=== PATIENT | female | born 1965 | race Caucasian/White ===

== ENCOUNTER 2023-05-25 14:24 | Outpatient (CLI) | payer OTHER, SELFPAY ==
--- NOTE | 2023-05-25 14:00 | DI.RAD_ITS ---
Exam(s) XR HIP RT COMPLETE AP PELVIS EXAM: XR HIP RT COMPLETE AP PELVIS CLINICAL HISTORY: eval R hip pain, AVN. TECHNIQUE: 2D digital imaging was performed. Two views COMPARISON: MR MR THIGH W WO CONTRAST RIGHT from 03/12/2023 FINDINGS: BONES: Large subchondral cyst of the femoral head. Slight flattening of the femoral head visible on the lateral view. No bony destructive lesion is seen. JOINTS: No dislocation present. Severe degenerative changes of the right hip joint space. Prominen t periarticular spurring. Large subchondral cysts in the femoral head and small subchondral cysts in the acetabulum. Left hip joint space is maintained. Acetabular spurring present. Mild degenerativ e changes of the SI joints and pubic symphysis. SOFT TISSUE: Normal. IMPRESSION: Severe degenerative changes of the right hip with large subchondral cyst in the head. DATA REPOSITORY: RADIATION DOSE DELIVERED:
== END 2023-05-25 14:25 | disposition home or self-care (01) ==
LOC: DIORS 14:25
PROVIDERS: PCP Family Medicine; Visit Provider Student in an Organized Health Care Education/Training Program
DX: M87.051 Idiopathic aseptic necrosis of right femur
CPT/HCPCS: 73502

== ENCOUNTER 2023-06-19 02:52 | Outpatient (CLI) | payer OTHER, SELFPAY ==
[2023-06-19 09:12] LABS: HCT 45.7 % (36.0-46.0); HGB 15.5 g/dL (11.2-15.7); MCH 30.3 pg (27.0-33.0); MCHC 33.9 % (32.0-36.0); MCV 89 fL (80-95); MPV 9.6 fL (8.0-11.0); Platelet Count 394 10^3/uL (130-400); RBC 5.11 10^6/uL (3.93-5.22); RDW 12.4 % (11.7-14.6); RDW-SD 41.1 fL; WBC 6.92 10^3/uL (4.4-10.8)
[2023-06-19 09:31] LABS: BUN 18 mg/dL (7-18); CREATININE 0.9 mg/dL (0.55-1.02); Calcium 9.6 mg/dL (8.5-10.1); Chloride 102 mmol/L (98-107); Estimated GFR 73.19 (mL/min/1.73m2); Glucose 130 mg/dL (74-106); Potassium 4.1 mmol/L (3.5-5.1); Sodium 140 mmol/L (136-145)
== END 2023-06-19 02:53 | disposition home or self-care (01) ==
LOC: LBO 02:53
PROVIDERS: PCP Family Medicine; Visit Provider Student in an Organized Health Care Education/Training Program
DX: M16.11 Unilateral primary osteoarthritis, right hip (principal); M87.051 Idiopathic aseptic necrosis of right femur; Z01.818 Encounter for other preprocedural examination
CPT/HCPCS: 36415; 80048; 85027

== ENCOUNTER 2023-07-01 05:59 | Day surgery (SDC) | payer OTHER, SELFPAY ==
[2023-07-01] VITALS (13 sets, daily range): BP systolic 114–183; BP diastolic 52–90; PULSE 63–83; RESP 14–20; TEMP 36.2–36.4; O2SAT 97–100; BMI 31.7
[2023-07-01] MEDS: Celecoxib 200 MG CAP 400 MG PO (06:38)
[2023-07-01] MEDS: Acetaminophen 500 MG TAB 1000 MG PO (06:38)
[2023-07-01] MEDS: Lactated Ringers 1,000 ML 80 ML IV (06:50)
--- NOTE | 2023-07-01 07:16 | W.ANESPRE ---
General Info Date of Service Date Performed: 07/01/23 Height: 5 ft 3 in Weight: 81.2 kg Body Mass Index (BMI): 31.7 Surgical Procedure: Operation Date: 07/01/23 07:50 Proposed Procedure Side Surgeon p Hip Total Hip Anterior, ACTIS 12/10 High Right Petey Suarez MD Meds Allergies and Home Medications Allergies Allergy/AdvReac Type Severity Reaction Status Date / Time No Known Allergies Allergy Verified 07/01/23 06:17 Home Medication Medication Instructions Recorded benazepril 20 mg tablet 20 mg PO DAILY 05/25/23 biotin 1,250 mcg-collagen 50 1 tab PO DAILY 06/19/23 mg-vit C 67.5 mg-vit E-herbal chew tablet cholecalciferol (vitamin D3) 50 50 mcg PO DAILY 06/19/23 mcg (2,000 unit) capsule multivitamin 1 tab PO DAILY 06/19/23 omega-3 fatty acids-fish oil 360 1 cap PO DAILY 06/19/23 mg-1,200 mg capsule (Fish Oil) ibuprofen 200 mg tablet (Advil) 200 mg PO ONCE 07/01/23 magnesium 250 mg tablet 250 mg PO DAILY 07/01/23 Current Visit Medications: Current Medications Generic Name Dose Route Start Last Admin Trade Name Rubenq PRN Reason Stop Dose Admin Acetaminophen 1,000 mg 07/01/23 06:00 07/01/23 06:38 Acetaminophen 500 Mg Tab PO 07/01/23 16:00 1,000 mg PREOP RAMÓN Administration Celecoxib 400 mg 07/01/23 06:00 07/01/23 06:38 Celecoxib 200 Mg Cap PO 07/01/23 16:00 400 mg PREOP RAMÓN Administration Tranexamic Acid 1,000 mg/ 60 mls @ 360 mls/hr 07/01/23 06:00 Sodium Chloride IV 07/01/23 16:00 PREOP RAMÓN Ringer's Solution 1,000 mls @ 80 mls/hr 07/01/23 06:00 07/01/23 06:50 IV 07/30/23 23:59 80 mls/hr INFUSION RAMÓN Administration Cefazolin Sodium/Dextrose 2 gm in 50 mls @ 100 mls/hr 07/01/23 06:00 Ancef Duplex IVPB 07/01/23 16:00 PREOP RAMÓN IV Miscellaneous Supplies 1 each 07/01/23 06:00 Iv Access IV 07/30/23 23:59 DIRECTED RAMÓN Sodium Chloride 0 ml 07/01/23 06:00 Normal Saline Flush 10 Ml Syr IV 07/30/23 23:59 PRN PRN Sodium Chloride 0 ml 07/01/23 06:00 Normal Saline 10 Ml Vial IJ 07/30/23 23:59 DIRECTED PRN Sterile Water 0 ml 07/01/23 06:00 Water,Injection,Sterile 10 Ml Vial IJ 07/30/23 23:59 DIRECTED PRN PFSH Active Problems Active Problems: Problem Status Onset Code Hypertension I10 Arthritis of right hip M16.11 Avascular necrosis of bone of right hip M87.051 Medical History Medical History Uterine cancer stage 1 Medical History Comments:: pt. had hard time waking up after tubal Surgical History Surgical History S/P breast biopsy right H/O wisdom tooth extraction H/O colonoscopy History of tubal ligation H/O total hysterectomy with bilateral salpingo-oophorectomy (BSO) Reports was for concern of cancer but ended up being precancerous Tobacco Smoking/Tobacco Use Status: Never Alcohol Alcohol Intake: current Alcohol intake frequency: a few times a month Alcohol type: beer, wine and hard liquor Substance Use Substance use: Never Substance use type: does not use Details: CBD oil topically. Alcohol: t-2, one drink Vital Signs and Lab Results Vital Signs Most Recent Vital Signs in EMR: Most Recent Vital Signs Temp Pulse Resp BP Pulse Ox 36.4 C L 70 14 156/65 H 97 07/01/23 06:27 07/01/23 06:27 07/01/23 06:27 07/01/23 06:27 07/01/23 06:27 Lab Results Blood Type / Crossmatch: No Data to Display Complete Blood Count: White Blood Count 6.92 10^3/uL (4.4-10.8) 06/19/23 09:03 Red Blood Count 5.11 10^6/uL (3.93-5.22) 06/19/23 09:03 Hemoglobin 15.5 g/dL (11.2-15.7) 06/19/23 09:03 Hematocrit 45.7 % (36.0-46.0) 06/19/23 09:03 Platelet Count 394 10^3/uL (130-400) 06/19/23 09:03 Complete Metabolic Panel: Sodium 140 mmol/L (136-145) 06/19/23 09:03 Potassium 4.1 mmol/L (3.5-5.1) 06/19/23 09:03 Chloride 102 mmol/L (98-107) 06/19/23 09:03 Carbon Dioxide 30.0 mmol/L (21.0-32.0) 06/19/23 09:03 BUN 18 mg/dL (7-18) 06/19/23 09:03 Creatinine 0.9 mg/dL (0.55-1.02) 06/19/23 09:03 Est GFR (CKD-EPI 2020) 73.19 (mL/min/1.73m2) 06/19/23 09:03 Calcium 9.6 mg/dL (8.5-10.1) 06/19/23 09:03 Glucose 130 mg/dL (74-106) H 06/19/23 09:03 Liver Function Panel: No Data to Display Coagulation Panel: No Data to Display Cardiac Panel: No Data to Display Arterial Blood Gas: No Data to Display Venous Blood Gas: No Data to Display Pancreas Panel: No Data to Display Thyroid Panel: No Data to Display Infectious Disease: No Data to Display Blood Cultures: No Data to Display Toxicology Panel: No Data to Display Anesthesia Assessment and Plan Anesthesia History Personal History: No History of Anesthesia Complications Family History: No Family History of Anesthesia Complications Exercise Tolerance Exercise Tolerance: Metabolic Equivalents>4 Pertinent Negatives Pertinent Negatives: No Symptoms of GERD, No Major Cardiovascular Symptoms or Complaints and No Major Pulmonary Symptoms or Complaints Cardiac & Pulmonary Exam Cardiac Exam: Normal S1/S2 Heart Sounds Pulmonary Exam: Clear Bilateral Breath Sounds Implantable Cardiac Device Does patient have a Pacemaker or an ICD?: No Airway Exam Known Difficult Airway: No Mallampati Class: 1 Mouth Opening: Normal (> 3cm) Thyromental Distance: Greater than 3 cm Neck Range of Motion: Full ROM Neck Circumference: Normal Teeth Condition: Normal Dentition ASA Classification ASA Score: ASA 2 Emergency Case?: No NPO Status NPO Status: NPO Clears >2 hours, Solids >8 hours Anesthesia Plan Resuscitation Status: Full Code Anesthesia Technique: Spinal Anesthesia Airway Planned: Natural Airway Monitors Used: Standard Monitors
[2023-07-01] MEDS: ceFAZolin 2 GM/50 ML BAG IVPB (07:37)
--- NOTE | 2023-07-01 08:55 | DI.RAD_ITS ---
Exam(s) XR HIP RT IN OR EXAM: XR HIP RT IN OR CLINICAL HISTORY: RT HIP DJD. TECHNIQUE: 2D digital imaging was performed. COMPARISON: No exams were available for comparison FINDINGS: Fluoroscopy provided during hip arthroplasty. See procedure report for details. Total fluoroscopy time 32 seconds IMPRESSION: Radiation exposure index/cumulative dose: akua [place]= 3.5892 mGy DATA REPOSITORY: RADIATION DOSE DELIVERED:
--- NOTE | 2023-07-01 10:12 | W.PM.OP ---
Date of service: 07/01/23 Time of Service: 08:00 Operative Note Operative Note DATE OF PROCEDURE: 07/01/23 PRE-OP DIAGNOSIS: Right Hip Osteoarthritis POST-OP DIAGNOSIS: same PROCEDURE: Right Anterior Total Hip Arthroplasty with Intraoperative Navigation SURGEON: Petey Suarez RE DYE HAND: Roselyn Meeks ANESTHESIA TYPE: Spinal Refer to Anesthesia Record ESTIMATED BLOOD LOSS: 200 PATHOLOGY: none sent TOURNIQUET TIME: 0 COMPLICATIONS: None Patient was transported to: PACU Patient's condition: stable Implants: 1. Depuy [place] Acetabular Component, 52mm 2. Depuy Acetabular Liner, [id number] 3. Depuy Actis Standard Collared Femoral Stem, Size 5 4. Depuy Altrx Ceramic Femoral Head, Size 36+5mm Indications: I have seen Tiffani in clinic for symptoms of hip arthritis, confirmed with radiographic findings. She has exhausted nonoperative methods and was having significant limitations in daily function and desired better function and less pain. I discussed the technical details of a hip replacement. I explained the risks of the procedure to include, but not limited to, bleeding, infection, pain, stiffness, fracture, damage to nerves and vessels, damage to muscles and tendons, loosening, instability, leg length inequality, need for repeat procedure, blood clot and cardiopulmonary demise. Despite these risks, Tiffani elected to proceed. Findings: There was significant signs of arthritis throughout the hip. Procedure Description: Tiffani was greeted in the preoperative holding area where the correct side was identified and marked. The consent was reviewed with the patient and signed. The history and physical was updated. All questions were answered. She was taken back to the operating room. A spinal anesthestic was then administered. The feet were wrapped with cast padding and Coban and then placed into the boot liners and then into the boots. Care was taken to protect the skin and make sure the heels were fully down and the boots were stable. The patient was then positioned onto the HANA table. Both legs were held in a neutral position. SCDs were applied. The patient was then slid down onto a peroneal post. Prophylactic antibiotics in the form of Cefazolin were administered. 1g of Tranxemic Acid was given intravenously within 30 minutes of incision. The right leg was then prepped with Chloraprep and draped in a standard fashion. A second prep with Chloraprep was performed prior to placement of a shower-curtain type drape with Iodine impregnated skin protection. A timeout to confirm correct identity, side and site, procedure, allergies, anesthesia, and medical concerns was performed. An obliquely oriented incision was made starting lateral to the ASIS and running distal over the Tensor Fascia Karolina (TFL) muscle belly toward the fibular head, approximately 10cm. The skin and soft tissue was dissected sharply, through Denis?s fascia, and to the fascia of the TFL. With the fascia and superior border of the IT band identified, the fascia was incised with a new knife just above any perforators from the IT band. The TFL muscle belly was bluntly dissected away from the fascia and moved laterally. The fat between TFL and rectus was identified to ensure the dissection was not within the TFL. Blunt dissection created space between abductors and the capsule and retractor was placed over the lateral femoral neck. The fibers of the rectus femoris tendon were identified and these were freed from the anterior capsule. A second cobra retractor was placed around the medial femoral neck. The TFL was further retracted laterally to show the deep fascia. Careful dissection through this layer identified three main crossing vessels of the lateral femoral circumflex. These were cauterized in multiple locations and then cut without any noticeable bleeding. The TFL was further released bluntly from the deep fascia to expose anterior hip capsule and fat The Lefty orthopaedic retractor was then placed beneath the TFL and against sartorius and medial soft tissues to protect and retract the soft tissues. A T-capsulotomy was then performed starting at the superior lateral acetabulum and moving distally to the intertrochanteric ridge. These capsular flaps were tagged with a No. 1 Ethibond and elevated from within. The capsular flaps were released to the shoulder of the lateral neck and to the lesser trochanter to give excellent visualization of the proximal femur. A neck osteotomy was performed using an oscillating saw based on preoperative templates. This cut started in the shoulder and of the lateral neck and exited medially. The saw was at all times directed medially to avoid injury to the greater trochanter. Gross traction was applied to the leg and the osteotomy opened. The femoral head was removed with a corkscrew, making sure to protect the TFL on its exit. Traction was released after head removal. This was measured on the back table to determine the starting reamer size. Portions of the rectus obscuring visualization were minimally elevated off the superior acetabulum. An anterior retractor was placed over the anterior wall between capsule and labrum and attached to the Gripper retraction system. The femur was rotated to 90 degrees and medial capsule was fully released until the lesser trochanter was palpable and visible; the femur was returned to 30 degrees. A posterior retractor was placed similarly between capsule and labrum. This provided excellent visualization. The contents of the cotyloid fossa were removed with electrocautery and the labrum was removed with a knife. There was a notable floor osteophyte. There was significant chondromalacia of the superior acetabulum. Acetabular reaming began with a 46mm reamer. This first reaming was directed anterior to posterior and medial to get down to the true floor. This was inspected and reamed until the true floor was reached. The anterior retractor was then released and entry and exit was provided by traction on the capsular flaps. I then reamed sequentially up to a 52mm reamer where good fit was obtained. The larger reamers were oriented based on anatomical reference of the anterior and lateral butt to ensure proper abduction and anteversion. Positioning and size was confirmed with the fluoroscopy. A 52mm Depuy [place] acetabular component was selected. The acetabulum was reamed around the periphery with the selected acetabular size to prevent a rim fit. The deep tissues were irrigated. The acetabular component was then impacted in a position of about 40-45 degrees of abduction and 15-20 degrees of anteversion, using the patient?s anatomy as the ultimate landmark. Fluoroscopy was used to confirm this. There was excellent blade aligner of the acetabular component and the inserting handle was removed. The acetabular liner, Depuy [id number] polyethylene liner, was inserted and lined up with the tines of the acetabular component. There was no soft tissue interposition. The liner was then impacted into position and confirmed to be well-seated. A portion of the kim-articular cocktail was then injected around the acetabulum into the capsule and periosteum. This cocktail consisted of 123mg of Ropivacaine, 0.25mg of Epinephrine, 0.04mg of Clonidine, and 15mg of Ketorolac, diluted to 50cc. The leg was rotated to 120 degrees. Any remaining medial capsule was released until the lesser trochanter was easily palpable. A retractor was placed medially. The lateral capsule was further released into the shoulder to allow access to the greater trochanter. A Posadas retractor was placed over the greater trochanter which allowed the trochanter to flip in front of the capsule for excellent exposure. The leg was brought down into maximal extension and 20 degrees of adduction while ensuring there was no impingement on the acetabulum. Any remnant capsule within the trochanter was released. Piriformis and obturator externis were identified and protected. There was excellent access to the proximal femur. The lateral neck remnant was removed with a rongeur. A blunt canal probe was used to identify the canal and trajectory for later broaching. A box osteotome initiated the broach course. A small curved rasp and a curved curette were used to work laterally. Broaching then began with a starter Actis broach. This was inserted manually around the trochanter and into the canal before mallet blows. The broach was seated to a few millimeters below the cut level based on the neck cut and the preoperative template. Sequential broaching was continued with the SpineFrontier pneumatic broaching device until a tight fit was obtained with good rotational control of the femur. A trial high offset neck was inserted along with a +5 trial head. The leg was brought out of extension and adduction and then reduced with traction and internal rotation. The leg was stable anteriorly in a position of 30 degrees of extension and 90 degrees of external rotation. Fluoroscopy was used to ensure there was no fracture and the stem was seated well. Leg lengths were checked with an AP pelvis and pelvic reference points. Scheduling [employer] Scheduling Software navigation system was used to confirm appropriate positioning and leg length and offset. This high offset was too much but was better recreated with standard stem neck. Once content with the desired offset and leg lengths, the leg was brought back into extension, external rotation and adduction. The periosteum and surrounding tissue was injected with remaining portion of the kim-articular cocktail. The proximal femur was irrigated as well as the deep tissues. The [employer] Actis standard collared stem, size 5, was then manually inserted into the proximal femur making sure to control rotation. It was then malleted into position with light blows, giving breaks to allow bone expansion and decrease risk of fracture. The selected Depuy Altrx Ceramic Head, size 36+5mm, was then placed onto the clean and dry trunnion and secured with impaction onto the tapered fit. The leg was brought back out of extension and adduction and reduced with traction and internal rotation. Stability was confirmed with no shuck at 90 degrees of external rotation and 30 degrees of extension. No impingement through range of motion arc. Final x-ray images were obtained with fluoroscopy to confirm adequate positioning and no intraoperative fracture. The deep tissues were thoroughly irrigated with Surgiphor, betadine solution. This was allowed to sit in the wound for 3 minutes before being thoroughly irrigated out with normal saline. The capsule was then reapproximated with the previously placed Ethibond sutures. The TFL fascia was finally closed with a No. 2 Stratafix, barbed suture. Deep tissues were then reapproximated with 0 Vicryl and a running 2-0 Vicryl. The skin was closed with a running 4-0 Monocryl in a subcuticular fashion. This was reinforced with skin glue. A Mepilex silver dressing was applied. At the end of the case, all counts were correct. Tiffani was transferred to the hospital bed without difficulty and suffering no apparent complication. Tiffani has a good prognosis. Physical therapy will start today and without restrictions, weight-bearing as tolerated. Aspirin 81mg BID will be used for DVT prophylaxis.
[2023-07-01] MEDS: oxyCODONE 5 MG TAB PO (10:23)
--- NOTE | 2023-07-01 10:56 | PT.INIE ---
PT Notes Visit Reasons: Right hip DJD Physical Therapy Day Surgery Initial Evaluation Date: Referring Doctor: RACHEL Warner PT Orders: PT CONSULT: S/P ortho surgery Precautions: WBAT on the R LE with AD. Patient Profile/Admitting Diagnosis: Ravi is a 58-year-old female with degenerative joint disease of the right hip and avascular necrosis of the right femur. She is status post right total hip arthroplasty on postoperative day 1 PMHX: All Active Problems (Updated 05/26/23 @ 06:14 by Petey Suarez MD) Arthritis of right hip (Acute) Avascular necrosis of bone of right hip (Acute) Social History/Home Situation: Lives with in a praivate home with a total of 12 steps to enter and a rail on one side. Independent with all aspects of ADLs prior to surgery. Equipment Owned/DME: None Subjective: reports achiness in the R hip and wanted to see how movement will help with her discomfort. Reported feeling groggy but willing to try out getting out of bed and walking. Denied lightheadedness, nausea, and chest pain. Per Nurse Sharda, patient was given Oxycodone about half an hour ago. Objective: General Observation: Mepilex Ag over surgical incision. TEDS to be legs. Mental Status: A&O x 4 Pain: As above ROM: Right Lower Extremity: Hip flexion WFL. Hip abduction WFL. Knee flexion WFL. Ankle dorsiflexion WFL. Ankle plantarflexion WFL. Left Lower Extremity: Hip flexion WFL. Hip abduction WFL. Knee flexion WFL. Ankle dorsiflexion WFL. Ankle plantarflexion WFL. Strength: Right Lower Extremity: Hip flexors 4-/5. Hip abductors 4-/5. Knee flexors 4/5. Knee extensors 4-/5. Ankle dorsiflexors 5/5. Ankle plantarflexors 5/5. Left Lower Extremity:Hip flexors 5/5. Hip abductors 5/5. Knee flexors 5/5. Knee extensors 5/5. Ankle dorsiflexors 5/5. Ankle plantarflexors 5/5. Sensation: Intact as to pain and light pressure in bilateral lower extremities Bed Mobility/Transfers: Minimal cueing provided for use of B hands as needed for support, movement sequence, Ad management, and and posture to reduce fall risk and minimize pain report Supine to sit stand bby assist Sit to stand contact guard assist with FWW Stand to sit contact guard assist with FWW Bed to chair contact guard assist with FWW Gait: Facilitated safe and correct performance of level surface ambulation covering a distance of 100 feet using front wheeled walker with contact-guard assist with report of decreased achiness on the right hip and thigh. Minimal verbal cueing provided for AD management, limb advancement, and posture. Reported increased grogginess at end of walk with increase pallor in lips. Nurse Sharda measured 117/57 mmHg which is a significant decrease from earlier BP reading. Patient agreed to resting for a little bit on advice of PT and Nurse Robin before trying out stairs. Wheelchair follow provided by nurse Robin for safety. Stairs: Deferred until later. Will check in on patient in half an hour. During the follow up visit about half an hour later, the patient was able to tolerate 3 x 4 inch steps and 2 x 6-inch steps while holding onto B rails with step-to gait pattern requiring minimal verbal cueing for safe gait pattern and hand placement. Stand by assist provided by Nurse Robin for safety. Balance: Static Sitting: Normal Dynamic Sitting: Normal Static Standing: Fair Dynamic Standing: Fair Special Tests: Mobility Limitations Standardized Measure [facility]-PAC 6 clicks Basic Mobility Inpatient Short Form: Raw Score: 18 CMS Score: 47% deficit Informed Consent/Education: Patient instructed in purpose of PT consult. Packet containing CARMEN exercise protocol has been given to patient. Education and training on initial set of exercises that can be done at home have been completed with patient. Trained patient with correct performance of exercises below to maximize motor control, joint flexibility, soft tissue extensibility of the R hip musculature to facilitate return to independent functional mobility performance. Access Code: [email or web address] URL: [email or web address] Date: 07/01/2023 Prepared by: Michaela Beach Exercises - Gluteal Sets - 1 x daily - 7 x weekly - 1 sets - 10 reps - 5 hold - Supine Heel Slide - 1 x daily - 7 x weekly - 1 sets - 10 reps - 5 hold - Supine Ankle Pumps - 1 x daily - 7 x weekly - 1 sets - 10 reps - 5 hold - Seated March - 1 x daily - 7 x weekly - 1 sets - 10 reps - 5 hold - Seated Long Arc Quad - 1 x daily - 7 x weekly - 1 sets - 10 reps - 5 hold Assessment: Patient requires the use of a front wheeled walker for all mobility ADL performance to reduce fall risk and maximize independence. Deferred stair negotiation training due to drop of and increased pallor in lips along with increased grogginess. Patient presents with clinical signs and symptoms consistent with current/admitting diagnoses that have resulted to mobility limitations, gait instability, generalized weakness, and impairment of motor control as demonstrated by the following impairment level findings: 1. Decreased strength to R hip major muscle groups 2. Impaired standing balance Impairments are contributing to the following functional limitations: 1. Inability to safely ambulate without assistive device 2. Increase completion time for mobility ADL performance 3. Increased fall risk Patient is assessed as a 25816 moderate complexity based on the following: History: 58-year-old female with impairment level findings, functional limitations, and past medical history as indicated above Examination: Demonstrable impairment in strength, balance, and mobility level with underlying impairments and functional limitations as documented above Presentation: Evolving Decision Makin moderate complexity Goals: N/A. PT evaluation and 1-2 treatment sessions only for functional mobility training using recommended AD and for HEP instruction. Plan of Care/Treatment Plan: N/A. PT evaluation and 1-2 treatment session only for functional mobility training using recommended AD and for HEP instruction. DISCHARGE RECOMMENDATIONS: Home when medically cleared by orthopedic surgeon. Recommend outpatient PT services in order to optimize functional mobility outcomes and facilitate return to independent community ambulation without an assistive device. TREATMENT CODE/TIME: 92360 x 27 minutes from 1 unit, 60251 x 17 minutes for 1 unit beginning at 10:56 AM and 11:56 AM. Thank you for the opportunity to participate in the care of this patient. Please sign an return this page within 30 days if you agree with the above POC. Thank you! Michaela Beach PT, DPT, CLT [facility], [place] Physician Signature Date
--- NOTE | 2023-07-01 11:20 | W.ANESPOSTOP ---
Postoperative Evaluation Date, Time and Location Date Performed: 07/01/23 Time Performed: 11:20 Patient Location: Day Surgery Unit Vital Signs Most Recent Imported Vital Signs: Most Recent Vital Signs Temp Pulse Resp BP Pulse Ox 36.3 C L 69 20 183/85 H 100 07/01/23 10:35 07/01/23 10:35 07/01/23 10:35 07/01/23 10:35 07/01/23 10:35 Pain Score Most Recent Pain Score: Most Recent Pain Score Pain Level 3 07/01/23 10:35 Assessment Mental Status: Awake (Alert & Oriented to Patient Baseline) Airway and Respiratory Function: Patent airway with normal (patient baseline) respiratory exam Cardiovascular Function: Hemodynamically Stable Hydration Status: Adequately Hydrated Nausea & Vomiting: No Nausea or Vomiting Pain: Pain is tolerable per patient Peripheral Nerve Block: Patient did not receive a nerve block
--- NOTE | 2023-07-01 12:28 | W.PM.DS.N ---
Date of service: 07/01/23 Time of Service: 11:48 DS: Diagnosis Discharge Diagnosis (1) Avascular necrosis of bone of right hip: Status: Acute Discharge Plan Disposition Patient Disposition: Home Condition: Good Discharge Details Reason For Visit: Right hip DJD Attending Provider: Petey Suarez Primary Care Provider: Federico So Home Meds and New Rx's Prescriptions: New acetaminophen 500 mg tablet 1,000 mg PO Q8H PRN Qty: 90 0RF Rx Instructions: Take two tablets up to every 8 hours as needed for pain aspirin 81 mg tablet,delayed release (DR/EC) 81 mg PO BID 30 Days Qty: 60 0RF celecoxib [Celebrex] 200 mg capsule 200 mg PO BID PRNQty: 60 0RF Rx Instructions: Take one tablet twice daily for pain and inflammation docusate sodium [Colace] 100 mg capsule 100 mg PO BID Qty: 30 0RF pantoprazole 40 mg tablet,delayed release (DR/EC) 40 mg PO DAILY 14 Days Qty: 14 0RF dexamethasone 4 mg tablet 4 mg PO DAILY Qty: 2 0RF Rx Instructions: Take one tablet once daily for two days oxycodone 5 mg tablet 5 mg PO Q6H PRNQty: 12 0RF Rx Instructions: Take one tablet up to every 6 hours as needed for severe postoperative pain Continued benazepril 20 mg tablet 20 mg PO DAILY multivitamin Tablet 1 tab PO DAILY cholecalciferol (vitamin D3) 50 mcg (2,000 unit) capsule 50 mcg PO DAILY omega-3 fatty acids-fish oil [Fish Oil] 360-1,200 mg capsule 1 cap PO DAILY cciwoi-mxbbxedk-mdd C-E-herbal 1,250 mcg-50 mg -67.5 mg-15 mg tablet,chewable 1 tab PO DAILY magnesium 250 mg tablet 250 mg PO DAILY Patient Comments: pt. states dose is around 300 mg Discontinued ibuprofen [Advil] 200 mg tablet 200 mg PO ONCE Patient Comments: 400 mg dose Discharge Instructions Additional Instructions: Total Hip Discharge Instructions Activity: The most important activity is to walk. You should try to take short walks a few times a day. You have no restrictions on movement or positioning, but do not try to force what you do. You will find some stiffness and weakness with hip flexion (lifting your knee). Do not try to strengthen this too early, continue to practice walking and stairs and this will come. - Outpatient physical therapy can be helpful to help return you to a normal gait and improve your flexibility and strength. This can start around 2 weeks. For some patients, it?s not necessary. Usually this is determined at the time of discharge or at the first post-operative visit. - You should wear the MONICA hose on both legs for 2 weeks. Dressing: Keep the surgical dressing in place for at least one week. After the first week it may be removed and replace with light gauze and tape or nothing. It may get wet after 3 days but avoid soaking the dressing. If it gets wet, just lightly pat dry. It is important to always keep some gauze between skin folds, especially when you are sitting. Spend some time with the wound exposed when you are lying flat as the incision does wrinkle onto itself. Medications: - You should take Tylenol and an anti-inflammatory Celebrex as your primary pain control medications. If the Celebrex is too expensive or not covered, please call the office for another alternative (Advil/Ibuprofen or Naproxen/Aleve). - You have been prescribed a stronger pain medication Oxycodone for breakthrough pain, take as needed as prescribed. - You have also been prescribed a stomach acid reduction agent Pantoprozole to help reduce stomach acid and reflux. - You have also been prescribed Decadron to help with post-operative nausea and pain. You will take this for two days starting tomorrow. - You will be taking Aspirin 81mg twice a day for DVT prevention unless instructed otherwise. - If you have constipation you should take Colace (which has been prescribed) or Miralax (which is available [id number]). It takes most people 3-4 days to have a bowel movement. Follow-up: 2 weeks If you have any acute concerns or questions, please do not hesitate to contact the office at [phone]. You may contact Dr. Suarez with any questions after hours through the hospital at [phone] or on his cell phone at [phone]. Stand Alone Forms: Anesthesia Discharge InstClif, Tj Abad (U) Referrals: Petey Suarez MD [ [facility] STAFF PHYSICIAN] - 07/16/23 11:00 am Equipment/Supplies: Walker Activity:: Elevate Remove Dressings/Wound Care:: Do Not Remove Shower/Bathe:: 72 hours and Cover Diet:: As Tolerated Discharge Orders Discharge Orders: Discharge Order (Routine); Ordered 07/01/23 Ordered By: Roselyn Meeks DS: Summary Time Spent with Patient providing and/or coordinating discharge services: Less than 30 minutes Status at Discharge Functional status at discharge: uses cane/walker Overall status at discharge: patient is progressing back to baseline Mental Status: mental status grossly normal Speech and Movement: speech and movement normal Mood: congruent mood Affect: normal affect Exam Psych Mental Status: mental status grossly normal Speech and Movement: speech and movement normal Mood: congruent mood Affect: normal affect DS: Data Vitals/I&O Vitals and I&O: Vital Signs Temperature 97.5 F L 07/01/23 06:27 Pulse 70 07/01/23 06:27 Pulse Rhythm Regular 07/01/23 06:27 Respiratory Rate 14 07/01/23 06:27 Respiratory Depth Normal 07/01/23 06:27 Blood Pressure 156/65 H 07/01/23 06:27 Pulse Oximetry 97 07/01/23 06:27 Oxygen Delivery Method Room Air 07/01/23 06:27 Oxygen Flow Rate 0 07/01/23 06:27 Pain Level 0 07/01/23 06:27 Intake & Output 06/30/23 06/30/23 07/01/23 11:59 23:59 11:59 Weight 179 lb 0.246 oz PFSH All Active Problems (Updated 07/01/23 @ 12:28 by Petey Suarez MD) Hypertension (Chronic) Arthritis of right hip (Acute) Avascular necrosis of bone of right hip (Acute) s/p R CARMEN (07/01/23) Medical History (Updated 07/01/23 @ 12:28 by Petey Suarez MD) Uterine cancer stage 1 Surgical History S/P breast biopsy right H/O wisdom tooth extraction H/O colonoscopy History of tubal ligation H/O total hysterectomy with bilateral salpingo-oophorectomy (BSO) Reports was for concern of cancer but ended up being precancerous Social History Smoking/Tobacco Use Status: Never Smoking risk assessment performed?: Yes Alcohol Intake: current Alcohol Intake frequency: a few times a month Alcohol type: beer, wine and hard liquor Drug use: Never Substance use type: does not use Details: CBD oil topically. Alcohol: t-2, one drink Housing: house Do you feel safe at home: Yes Do you feel safe in your relationship?: Yes Additional Social history: unable to assess privately Time Spent with Patient Time Spent with Patient: 45-69 minutes Time was spent: obtaining and/or reviewing separately otained hiistory, indepentently interpreting results and counseling the patient
== END 2023-07-01 13:07 | disposition home or self-care (01) ==
PROVIDERS: PCP Family Medicine; Visit Provider Student in an Organized Health Care Education/Training Program
PROC: (CPT 27130; principal; 2023-07-01 07:30)
DX: M87.051 Idiopathic aseptic necrosis of right femur (principal); M16.11 Unilateral primary osteoarthritis, right hip; I10 Essential (primary) hypertension
CPT/HCPCS: 27130; 20985; 97162; 97530; 73501; J0690; J1100; J2001; J2250; J2405

== ENCOUNTER 2023-07-16 15:10 | Outpatient (CLI) | payer OTHER, SELFPAY ==
--- NOTE | 2023-07-16 10:45 | DI.RAD_ITS ---
Exam(s) XR HIP RT COMPLETE AP PELVIS EXAM: XR HIP RT COMPLETE AP PELVIS CLINICAL HISTORY: 1ST POST OP S/P R CARMEN. TECHNIQUE: 2D digital imaging was performed. COMPARISON: CR XR HIP RT COMPLETE AP PELVIS from 05/25/2023 FINDINGS: Two views Satisfactory position alignment of the components of the recently placed right hip prosthesis. No fr actures nor loosening evident. IMPRESSION: Stable satisfactory appearance DATA REPOSITORY: RADIATION DOSE DELIVERED:
== END 2023-07-16 15:11 | disposition home or self-care (01) ==
LOC: DIORS 15:11
PROVIDERS: PCP Family Medicine; Visit Provider Physician Assistant
DX: Z47.1 Aftercare following joint replacement surgery (principal); Z96.651 Presence of right artificial knee joint
CPT/HCPCS: 73502

== ENCOUNTER 2024-07-07 15:40 | Outpatient (CLI) | payer BC, SELFPAY ==
--- NOTE | 2024-07-07 09:44 | DI.RAD_ITS ---
Exam(s) XR HIP RT AP LAT ONLY EXAM: XR HIP RT AP LAT ONLY INDICATION: ANNUAL F/U R CARMEN. COMPARISON: CR XR HIP RT COMPLETE AP PELVIS from 07/16/2023 TECHNIQUE: 2D digital imaging was performed. Two views. FINDINGS: Stable alignment of right hip prosthesis. No abnormal surrounding lucencies. DATA REPOSITORY: RADIATION DOSE DELIVERED:
== END 2024-07-07 15:41 | disposition home or self-care (01) ==
LOC: DIORS 15:41
PROVIDERS: PCP Family Medicine; Visit Provider Student in an Organized Health Care Education/Training Program
DX: M87.051 Idiopathic aseptic necrosis of right femur (principal)
CPT/HCPCS: 73502